=== PATIENT | female | born 1990 | race Caucasian/White ===

== ENCOUNTER 2018-11-20 18:53 | Emergency (ER) | payer OTHER ==
[~2018-11-20] VITALS: Ht 157.5 cm; Wt 73.0 kg
[2018-11-20 19:00] VITALS: Ht 157.5 cm; Wt 73.0 kg
[2018-11-20 22:44] VITALS: BP 114/70
== END 2018-11-20 22:44 | disposition home or self-care (01) ==
LOC: ED 18:53
DX: R21 Rash and other nonspecific skin eruption (principal)